=== PATIENT | female | born 1950 | race Caucasian/White ===

== ENCOUNTER 2017-07-15 14:30 | Inpatient (IN) ==
[2017-07-15 16:14] LABS: CKMB % 6.3 %
[2017-07-15 16:25] LABS: Troponin I Only 4.13 NG/ML (0.00-0.045)
[2017-07-15] MEDS ORDERED: ONDANSETRON 4 MG/2 ML VIAL IV PRN (18:08)
[2017-07-15] MEDS ORDERED: PNEUMOCOCCAL VACCINE (13 VALENT) 0.5 ML SYRINGE IM ONE (18:13)
[2017-07-15] MEDS: NITROGLYCERIN 2% OINT 1 INCH/GM PACK TOP SCH (18:54)
[2017-07-15] MEDS ORDERED: ACETAMINOPHEN 325 MG TABLET PO PRN (18:55)
[2017-07-15 19:20] LABS: Risk Ratio 3.63; VLDL CHOLESTEROL 21.6 MG/DL
[2017-07-15] MEDS: CARBIDOPA/LEVODOPA CR 25-100 MG TABLET PO SCH (21:11)
[2017-07-15] MEDS: CARVEDILOL 25 MG TABLET PO SCH (21:11)
[2017-07-15] MEDS: GABAPENTIN 100 MG CAPSULE PO SCH (21:11)
[2017-07-16] MEDS: NITROGLYCERIN 2% OINT 1 INCH/GM PACK TOP SCH ×4 (01:36→17:52)
[2017-07-16 05:11] LABS: Basophils % 0.6 % (0.0-0.8); Eosinophils # 0.1 10*3/uL (0.0-0.87); Eosinophils % 1.8 % (0.00-10.9); Hematocrit 33.7 VOL% (35.7-47.0); Hemoglobin 11.6 GM/DL (12.0-16.0); Immature Granulocytes % 0.2 %; Immature Granulocytes Absolute 0.01 #; Lymphocytes % 45.4 % (21.3-54.2); Mean Corpuscular HGB Conc 34.4 GM/DL (32-36); Mean Corpuscular Hemoglobin 32 PG (27-34); Mean Corpuscular Volume 92.3 FL (87-102); Monocytes # 0.5 10*3/uL (0.11-0.8); Monocytes % 8.1 % (1.7-12.7); Neutrophils # 2.9 10*3/uL (1.4-7.4); Neutrophils % 43.9 % (38.7-73.9); Platelet Count 186 T/CUMM (130-400); Red Blood Count 3.65 MC/CUMM (3.8-5.5); Red Cell Distribution Width 15.2 % (9.3-17.3); White Blood Count 6.6 T/CUMM (4-12)
[2017-07-16 05:37] LABS: Alanine Aminotransferase < 6 U/L (13-56); Albumin 3.4 G/DL (3.4-5.0); Alkaline Phosphatase 98 U/L (45-117); Aspartate Amino Transferase 23 U/L (0-37); Blood Urea Nitrogen 17 MG/DL (7-18); Calcium 8.7 MG/DL (8.5-10.1); Glucose 90 MG/DL (74-106); Osmolality,Calculated 282.3 MOS/KG (273-304); Potassium 4.2 MMOL/L (3.5-5.1); Sodium 141 MMOL/L (136-145); Total Protein 6.2 G/DL (6.4-8.3)
[2017-07-16] MEDS: CARBIDOPA/LEVODOPA CR 25-100 MG TABLET PO SCH ×2 (08:42→21:23)
[2017-07-16] MEDS: PANTOPRAZOLE 40 MG TABLET PO SCH (08:42)
[2017-07-16] MEDS: ASPIRIN 325 MG TABLET PO SCH (08:42)
[2017-07-16] MEDS: CARVEDILOL 25 MG TABLET PO SCH ×2 (08:42→16:30)
[2017-07-16] MEDS: CITALOPRAM 20 MG TABLET PO SCH (08:42)
[2017-07-16] MEDS: GABAPENTIN 100 MG CAPSULE PO SCH ×3 (08:42→21:23)
[2017-07-16] MEDS ORDERED: POTASSIUM CHLORIDE RIDER 10 MEQ in PREMIX 1 EACH IV PRN (12:05)
[2017-07-16] MEDS ORDERED: DIAZEPAM 5 MG TABLET PO ONE (12:05)
[2017-07-16] MEDS ORDERED: diphenhydrAMINE CAP 25 MG CAPSULE PO ONE (12:05)
[2017-07-16] MEDS ORDERED: MAGNESIUM SULF RIDER 2 GM in PREMIX 1 EACH IV PRN (12:05)
[2017-07-16] MEDS: TICAGRELOR 90 MG TABLET PO SCH ×2 (12:29→21:24)
[2017-07-16] MEDS: ROSUVASTATIN 20 MG TABLET PO SCH (21:23)
[2017-07-17] MEDS: NITROGLYCERIN 2% OINT 1 INCH/GM PACK TOP SCH ×4 (03:28→17:08)
[2017-07-17] MEDS: CITALOPRAM 20 MG TABLET PO SCH (08:41)
[2017-07-17] MEDS: PANTOPRAZOLE 40 MG TABLET PO SCH (08:42)
[2017-07-17] MEDS: ASPIRIN 325 MG TABLET PO SCH (08:42)
[2017-07-17] MEDS: TICAGRELOR 90 MG TABLET PO SCH ×2 (08:42→21:37)
[2017-07-17] MEDS: CARVEDILOL 25 MG TABLET PO SCH ×2 (08:42→16:10)
[2017-07-17] MEDS: GABAPENTIN 100 MG CAPSULE PO SCH ×3 (08:42→21:37)
[2017-07-17] MEDS: CARBIDOPA/LEVODOPA CR 25-100 MG TABLET PO SCH ×2 (08:44→21:37)
[2017-07-17 10:32] LABS: Apearance,Urine Slightly Hazy (Clear); Bacteria,Urine Occasional /HPF (Few); Bilirubin,Urine Negative (Negative); Blood, Urine Negative (Negative); Glucose,Urine (UA) Negative (Negative); Hyaline Casts,Urine 4 /LPF (0-3); Ketones,Urine Negative (Negative); Mucus,Urine Occasional /LPF (Occasional); Nitrite,Urine Negative (Negative); Protein,Urine Negative; RBC,Urine 1 /HPF (0-4); Squamous Epithelial Cell,Urine Occasional /HPF (0-10); Urine Color Yellow (Yellow); Urine Specific Gravity 1.016 (1.001-1.035); Urine Urobilinogen < 2.0 EU/DL (0.2-1.0); WBC,Urine 2 /HPF (0-6)
[2017-07-17] MEDS ORDERED: MAGNESIUM SULF RIDER 2 GM in PREMIX 1 EACH IV PRN (19:02)
[2017-07-17] MEDS ORDERED: ENOXAPARIN 80 MG/0.8 ML SYRINGE SUBCUT SCH (19:30)
[2017-07-17] MEDS: ROSUVASTATIN 20 MG TABLET PO SCH (21:37)
[2017-07-18] MEDS: SODIUM CHLORIDE 0.9% 1,000 ML IV SCH ×6 (00:11→17:08)
[2017-07-18] MEDS: NITROGLYCERIN 2% OINT 1 INCH/GM PACK TOP SCH ×4 (00:23→17:12)
[2017-07-18] MEDS ORDERED: OXYMETAZOLINE 0.05% NASAL SPRAY 15 ML BOTTLE BOTH NARES PRN (04:26)
[2017-07-18 05:26] LABS: Basophils # 0.1 10*3/uL (0.0-0.2); Basophils % 0.8 % (0.0-0.8); Eosinophils # 0.1 10*3/uL (0.0-0.87); Eosinophils % 1.6 % (0.00-10.9); Hematocrit 32.1 VOL% (35.7-47.0); Hemoglobin 10.6 GM/DL (12.0-16.0); Immature Granulocytes % 0.2 %; Immature Granulocytes Absolute 0.02 #; Lymphocytes # 2.8 10*3/uL (1.4-4.0); Lymphocytes % 33.7 % (21.3-54.2); Mean Corpuscular Hemoglobin 31 PG (27-34); Mean Platelet Volume 12.8 FL (9.6-12.0); Monocytes # 0.7 10*3/uL (0.11-0.8); Neutrophils # 4.6 10*3/uL (1.4-7.4); Neutrophils % 55.7 % (38.7-73.9); Platelet Count 187 T/CUMM (130-400); Red Blood Count 3.38 MC/CUMM (3.8-5.5); Red Cell Distribution Width 14.8 % (9.3-17.3); White Blood Count 8.3 T/CUMM (4-12)
[2017-07-18 05:28] LABS: PT Patient Result 10.5 SECS; Partial Thromboplastin Time 31.3 SECS (0-40)
[2017-07-18 05:43] LABS: Calcium 8.2 MG/DL (8.5-10.1); Osmolality,Calculated 288.3 MOS/KG (273-304); Potassium 4.7 MMOL/L (3.5-5.1)
[2017-07-18 05:57] LABS: Calcium 8.4 MG/DL (8.5-10.1); Osmolality,Calculated 289.3 MOS/KG (273-304); Potassium 4.6 MMOL/L (3.5-5.1)
[2017-07-18] MEDS ORDERED: diphenhydrAMINE CAP 25 MG CAPSULE PO ONE ×2 (06:30)
[2017-07-18] MEDS ORDERED: DIAZEPAM 5 MG TABLET PO ONE ×2 (06:30)
[2017-07-18] MEDS ORDERED: SODIUM CHLORIDE 0.9% 500 ML IV ONE ×2 (07:08→07:24)
[2017-07-18 07:40] LABS: Hematocrit 27.4 VOL% (35.7-47.0); Hemoglobin 9.3 GM/DL (12.0-16.0)
[2017-07-18] MEDS ORDERED: SODIUM CHLORIDE 0.9% 1,000 ML IV PRN ×2 (07:57→08:37)
[2017-07-18] MEDS: CITALOPRAM 20 MG TABLET PO SCH (08:19)
[2017-07-18] MEDS: GABAPENTIN 100 MG CAPSULE PO SCH ×3 (08:20→21:38)
[2017-07-18] MEDS: PANTOPRAZOLE 40 MG TABLET PO SCH (08:20)
[2017-07-18] MEDS: CARBIDOPA/LEVODOPA CR 25-100 MG TABLET PO SCH ×2 (08:20→21:38)
[2017-07-18 16:43] LABS: Hematocrit 25.5 VOL% (35.7-47.0); Hemoglobin 8.5 GM/DL (12.0-16.0)
[2017-07-18] MEDS ORDERED: MAGNESIUM SULF RIDER 2 GM in PREMIX 1 EACH IV PRN (18:19)
[2017-07-18] MEDS ORDERED: POTASSIUM CHLORIDE RIDER 10 MEQ in PREMIX 1 EACH IV PRN (18:19)
[2017-07-18] MEDS: ROSUVASTATIN 20 MG TABLET PO SCH (21:38)
[2017-07-19] MEDS: SODIUM CHLORIDE 0.9% 1,000 ML IV SCH ×4 (02:31→22:29)
[2017-07-19] MEDS: NITROGLYCERIN 2% OINT 1 INCH/GM PACK TOP SCH ×6 (02:45→23:58)
[2017-07-19 05:49] LABS: Basophils # 0.1 10*3/uL (0.0-0.2); Basophils % 0.5 % (0.0-0.8); Eosinophils # 0.1 10*3/uL (0.0-0.87); Eosinophils % 1.3 % (0.00-10.9); Hemoglobin 8.1 GM/DL (12.0-16.0); Immature Granulocytes % 0.3 %; Immature Granulocytes Absolute 0.03 #; Lymphocytes # 3.1 10*3/uL (1.4-4.0); Lymphocytes % 33.4 % (21.3-54.2); Mean Corpuscular HGB Conc 33.8 GM/DL (32-36); Mean Corpuscular Hemoglobin 30 PG (27-34); Mean Corpuscular Volume 89.2 FL (87-102); Mean Platelet Volume 12.4 FL (9.6-12.0); Monocytes # 0.6 10*3/uL (0.11-0.8); Monocytes % 6.8 % (1.7-12.7); Neutrophils # 5.4 10*3/uL (1.4-7.4); Neutrophils % 57.7 % (38.7-73.9); Platelet Count 160 T/CUMM (130-400); Red Blood Count 2.69 MC/CUMM (3.8-5.5); Red Cell Distribution Width 19.1 % (9.3-17.3); White Blood Count 9.4 T/CUMM (4-12)
[2017-07-19 06:12] LABS: Osmolality,Calculated 285.1 MOS/KG (273-304)
[2017-07-19 06:13] LABS: Calcium 8.1 MG/DL (8.5-10.1); Osmolality,Calculated 285.1 MOS/KG (273-304); Potassium 4.2 MMOL/L (3.5-5.1)
[2017-07-19] MEDS: PANTOPRAZOLE 40 MG TABLET PO SCH (09:23)
[2017-07-19] MEDS: GABAPENTIN 100 MG CAPSULE PO SCH ×3 (12:29→21:51)
[2017-07-19] MEDS ORDERED: ETOMIDATE 20 MG/10 ML VIAL IV ONE (12:35)
[2017-07-19] MEDS ORDERED: LIDOCAINE 2% 5 ML VIAL ONE (12:35)
[2017-07-19] MEDS ORDERED: LIDOCAINE 1% 20 ML VIAL ONE (14:36)
[2017-07-19] MEDS ORDERED: MIDAZOLAM 2 MG/2 ML VIAL ONE (14:40)
[2017-07-19] MEDS ORDERED: MEPERIDINE 25 MG/1 ML VIAL ONE (14:40)
[2017-07-19] MEDS ORDERED: HEPARIN 5,000 UNIT/1 ML VIAL ONE (14:53)
[2017-07-19] MEDS: CARBIDOPA/LEVODOPA CR 25-100 MG TABLET PO SCH ×2 (17:00→21:51)
[2017-07-19] MEDS: ASPIRIN CHEW 81 MG TABLET PO SCH (17:00)
[2017-07-19] MEDS ORDERED: NITROGLYCERIN SL 0.4 MG TABLET SL PRN (17:01)
[2017-07-19] MEDS: buPROPion 75 MG TABLET PO SCH ×2 (17:06→21:51)
[2017-07-19] MEDS: TICAGRELOR 90 MG TABLET PO SCH ×2 (17:07→21:51)
[2017-07-19] MEDS: CITALOPRAM 20 MG TABLET PO SCH (17:13)
[2017-07-19] MEDS: ZALEPLON 5 MG CAPSULE PO PRN (21:51)
[2017-07-19] MEDS: ROSUVASTATIN 20 MG TABLET PO SCH (21:51)
[2017-07-20 05:24] LABS: Basophils % 0.4 % (0.0-0.8); Eosinophils # 0.1 10*3/uL (0.0-0.87); Eosinophils % 1.7 % (0.00-10.9); Hematocrit 20.2 VOL% (35.7-47.0); Hemoglobin 6.6 GM/DL (12.0-16.0); Immature Granulocytes % 0.4 %; Immature Granulocytes Absolute 0.03 #; Lymphocytes # 2.2 10*3/uL (1.4-4.0); Lymphocytes % 28.3 % (21.3-54.2); Mean Corpuscular HGB Conc 32.7 GM/DL (32-36); Mean Corpuscular Hemoglobin 30 PG (27-34); Mean Corpuscular Volume 91.8 FL (87-102); Monocytes # 0.5 10*3/uL (0.11-0.8); Monocytes % 6.9 % (1.7-12.7); Neutrophils # 4.9 10*3/uL (1.4-7.4); Neutrophils % 62.3 % (38.7-73.9); Platelet Count 145 T/CUMM (130-400); Red Cell Distribution Width 18.7 % (9.3-17.3); White Blood Count 7.8 T/CUMM (4-12)
[2017-07-20 06:23] LABS: Alanine Aminotransferase < 6 U/L (13-56); Albumin 2.7 G/DL (3.4-5.0); Alkaline Phosphatase 66 U/L (45-117); Aspartate Amino Transferase 9 U/L (0-37); Blood Urea Nitrogen 13 MG/DL (7-18); Calcium 7.7 MG/DL (8.5-10.1); Glucose 114 MG/DL (74-106); Potassium 3.5 MMOL/L (3.5-5.1); Sodium 143 MMOL/L (136-145); Total Protein 4.8 G/DL (6.4-8.3)
[2017-07-20] MEDS: SODIUM CHLORIDE 0.9% 1,000 ML IV SCH (06:32)
[2017-07-20] MEDS: NITROGLYCERIN 2% OINT 1 INCH/GM PACK TOP SCH ×3 (06:49→17:19)
[2017-07-20] MEDS: CARVEDILOL 25 MG TABLET PO SCH ×2 (09:40→16:53)
[2017-07-20] MEDS: CARBIDOPA/LEVODOPA CR 25-100 MG TABLET PO SCH ×2 (09:40→22:01)
[2017-07-20] MEDS: DONEPEZIL 10 MG TABLET PO SCH (09:40)
[2017-07-20] MEDS: buPROPion 75 MG TABLET PO SCH ×2 (09:40→22:02)
[2017-07-20] MEDS: GABAPENTIN 100 MG CAPSULE PO SCH ×3 (09:40→22:01)
[2017-07-20] MEDS: TICAGRELOR 90 MG TABLET PO SCH ×2 (09:40→22:02)
[2017-07-20] MEDS: ASPIRIN CHEW 81 MG TABLET PO SCH (09:40)
[2017-07-20] MEDS: PANTOPRAZOLE 40 MG TABLET PO SCH (09:40)
[2017-07-20] MEDS ORDERED: SODIUM CHLORIDE 0.9% 1,000 ML IV PRN (10:34)
[2017-07-20 11:45] LABS: Hematocrit 20.4 VOL% (35.7-47.0); Hemoglobin 6.7 GM/DL (12.0-16.0)
[2017-07-20] MEDS ORDERED: BISACODYL 5 MG TABLET PO PRN (15:20)
[2017-07-20] MEDS ORDERED: guaiFENesin/DM ER 600-30 MG TABLET PO PRN (15:20)
[2017-07-20] MEDS ORDERED: diphenhydrAMINE CAP 25 MG CAPSULE PO PRN (15:20)
[2017-07-20] MEDS ORDERED: ROSUVASTATIN 10 MG TABLET PO SCH (21:00)
[2017-07-20] MEDS: ZALEPLON 5 MG CAPSULE PO PRN (22:01)
[2017-07-21] MEDS: NITROGLYCERIN 2% OINT 1 INCH/GM PACK TOP SCH ×3 (01:06→12:55)
[2017-07-21 05:07] LABS: Basophils % 0.5 % (0.0-0.8); Eosinophils # 0.2 10*3/uL (0.0-0.87); Eosinophils % 2.2 % (0.00-10.9); Hematocrit 27.4 VOL% (35.7-47.0); Hemoglobin 8.9 GM/DL (12.0-16.0); Immature Granulocytes % 0.5 %; Immature Granulocytes Absolute 0.04 #; Lymphocytes # 2.5 10*3/uL (1.4-4.0); Mean Corpuscular HGB Conc 32.5 GM/DL (32-36); Mean Corpuscular Hemoglobin 28 PG (27-34); Mean Corpuscular Volume 87.5 FL (87-102); Mean Platelet Volume 12.6 FL (9.6-12.0); Monocytes # 0.6 10*3/uL (0.11-0.8); Monocytes % 7.6 % (1.7-12.7); Neutrophils # 4.4 10*3/uL (1.4-7.4); Neutrophils % 57.2 % (38.7-73.9); Platelet Count 143 T/CUMM (130-400); Red Blood Count 3.13 MC/CUMM (3.8-5.5); Red Cell Distribution Width 19.3 % (9.3-17.3); White Blood Count 7.8 T/CUMM (4-12)
[2017-07-21 05:30] LABS: Calcium 8.2 MG/DL (8.5-10.1); Potassium 3.3 MMOL/L (3.5-5.1)
[2017-07-21] MEDS ORDERED: POTASSIUM CHLORIDE 20 MEQ PACK PO ONE (08:30)
[2017-07-21] MEDS: ASPIRIN CHEW 81 MG TABLET PO SCH (09:10)
[2017-07-21] MEDS: PANTOPRAZOLE 40 MG TABLET PO SCH (09:10)
[2017-07-21] MEDS: TICAGRELOR 90 MG TABLET PO SCH (09:10)
[2017-07-21] MEDS: CARVEDILOL 25 MG TABLET PO SCH (09:10)
[2017-07-21] MEDS: DONEPEZIL 10 MG TABLET PO SCH (09:10)
[2017-07-21] MEDS: buPROPion 75 MG TABLET PO SCH (09:10)
[2017-07-21] MEDS: GABAPENTIN 100 MG CAPSULE PO SCH (09:10)
[2017-07-21] MEDS: CARBIDOPA/LEVODOPA CR 25-100 MG TABLET PO SCH (09:10)
[2017-07-21 11:28] VITALS: BP 102/57
[2017-07-21] MEDS ORDERED: FERROUS SULFATE 325 MG TABLET PO SCH (21:00)
[2017-07-21] MEDS ORDERED: FERROUS SULFATE ER 140 MG TABLET PO SCH (21:00)
== END 2017-07-21 14:51 | disposition home or self-care (01) | DRG 281 ==
LOC: EDUNIT# → EDBD → N.ED 14:30 → N.EDINP 15:08 → N.TELES 18:17 → N.ICU 07-18 08:04 → N.TELEN 07-19 15:41
PROVIDERS: ADMIT Internal Medicine Cardiovascular Disease; ATTEND Internal Medicine Cardiovascular Disease
PROC: CLCCHCL (ICD-10-PCS; 2017-07-19 13:45)

== ENCOUNTER 2018-01-21 20:47 | Inpatient (IN) ==
[2018-01-21] MEDS: NOREPINEPHRINE 8 MG in SODIUM CHLORIDE 0.9% 242 ML IV PRN (20:42)
[~2018-01-21 20:47] MED LIST: NOREPINEPHRINE 4 MG/4 ML VIAL IV ONE
[2018-01-21] MEDS ORDERED: NOREPINEPHRINE 4 MG/4 ML VIAL IV ONE ×2 (20:53→20:55)
[2018-01-21] MEDS ORDERED: LIDOCAINE 1%/EPI INJ 20 ML VIAL ONE (20:53)
[2018-01-21] MEDS ORDERED: HEPARIN/NACL 0.9% 2 UNITS/ML 1,000 ML IV ONE (20:53)
[2018-01-21] MEDS ORDERED: TIROFIBAN 5,000 MCG/100 ML PREMIX IV ONE (20:57)
[2018-01-21] MEDS ORDERED: DOPamine 800 MG/250 ML PREMIX IV ONE (21:12)
[2018-01-21] MEDS: DOPamine 800 MG/250 ML PREMIX IV PRN (21:17)
[2018-01-21] MEDS ORDERED: ENOXAPARIN 60 MG/0.6 ML SYRINGE ONE (21:18)
[2018-01-21] MEDS ORDERED: ASPIRIN 325 MG TABLET ONE (21:19)
[2018-01-21] MEDS ORDERED: TICAGRELOR 90 MG TABLET ONE (21:34)
[2018-01-21] MEDS ORDERED: TIROFIBAN 5,000 MCG/100 ML PREMIX IV SCH (22:00)
[2018-01-21] MEDS ORDERED: fentaNYL 100 MCG/2 ML VIAL IV PRN (22:10)
[2018-01-21] MEDS ORDERED: SODIUM CHLORIDE 0.45% 1,000 ML IV SCH (22:30)
[2018-01-22] MEDS: NOREPINEPHRINE 8 MG in SODIUM CHLORIDE 0.9% 242 ML IV PRN ×5 (01:47→20:34)
[2018-01-22 02:20] LABS: Basophils % 0.2 % (0.0-0.8); Hematocrit 28.3 VOL% (35.7-47.0); Immature Granulocytes % 1.3 %; Immature Granulocytes Absolute 0.19 #; Lymphocytes # 1.7 10*3/uL (1.4-4.0); Lymphocytes % 11.3 % (21.3-54.2); Mean Corpuscular HGB Conc 31.8 GM/DL (32-36); Mean Corpuscular Hemoglobin 29 PG (27-34); Mean Corpuscular Volume 92.5 FL (87-102); Mean Platelet Volume 10.7 FL (9.6-12.0); Monocytes # 0.8 10*3/uL (0.11-0.8); Monocytes % 5.2 % (1.7-12.7); Neutrophils # 12.2 10*3/uL (1.4-7.4); Platelet Count 301 T/CUMM (130-400); Red Blood Count 3.06 MC/CUMM (3.8-5.5); Red Cell Distribution Width 15.7 % (9.3-17.3); White Blood Count 14.8 T/CUMM (4-12)
[2018-01-22] MEDS ORDERED: NOREPINEPHRINE 4 MG/4 ML VIAL IV ONE (05:26)
[2018-01-22] MEDS ORDERED: FUROSEMIDE 40 MG/4 ML VIAL IV ONE (09:19)
[2018-01-22] MEDS: TICAGRELOR 90 MG TABLET PO SCH ×2 (09:51→22:01)
[2018-01-22] MEDS: ASPIRIN EC 81 MG TABLET PO SCH (09:51)
[2018-01-22 10:24] LABS: Albumin 2.5 G/DL (3.4-5.0); Bilirubin,Total 0.8 MG/DL (0.2-1.0); Calcium 7.5 MG/DL (8.5-10.1); Osmolality,Calculated 285.7 MOS/KG (273-304); Potassium 3.7 MMOL/L (3.5-5.1); Total Protein 6.1 G/DL (6.4-8.3)
[2018-01-22] MEDS: ALBUTEROL/IPRATROPIUM 3 ML NEB RESP TX SCH ×4 (10:59→22:54)
[2018-01-22 11:06] LABS: Apearance,Urine CLOUDY (Clear); Bilirubin,Urine Negative (Negative); Blood, Urine Negative (Negative); Glucose,Urine (UA) Negative (Negative); Ketones,Urine 5 mg/dL (Negative); Mucus,Urine Many /LPF (Occasional); Nitrite,Urine Negative (Negative); Protein,Urine 100 MG/DL; RBC,Urine 5 /HPF (0-4); Squamous Epithelial Cell,Urine Occasional /HPF (0-10); Urine Color Amber (Yellow); Urine Specific Gravity > 1.060 (1.001-1.035); WBC,Urine 5 /HPF (0-6)
[2018-01-22] MEDS ORDERED: SIMVASTATIN 40 MG TABLET PO SCH (21:00)
[2018-01-22] MEDS: ENOXAPARIN 30 MG/0.3 ML SYRINGE SUBCUT SCH (22:01)
[2018-01-23] MEDS: ALBUTEROL/IPRATROPIUM 3 ML NEB RESP TX SCH ×6 (02:35→23:06)
[2018-01-23] MEDS: NOREPINEPHRINE 8 MG in SODIUM CHLORIDE 0.9% 242 ML IV PRN ×2 (03:03→15:30)
[2018-01-23 03:49] LABS: Calcium 7.6 MG/DL (8.5-10.1); Osmolality,Calculated 290.3 MOS/KG (273-304); Potassium 3.4 MMOL/L (3.5-5.1)
[2018-01-23] MEDS: ASPIRIN EC 81 MG TABLET PO SCH (08:06)
[2018-01-23] MEDS: TICAGRELOR 90 MG TABLET PO SCH ×2 (08:06→21:07)
[2018-01-23] MEDS: SODIUM CHLORIDE 0.9% 1,000 ML IV SCH (11:19)
[2018-01-23] MEDS: INSULIN REGULAR 100 UNIT/ML SUBCUT SCH ×2 (11:21→16:18)
[2018-01-23] MEDS: POTASSIUM CHLORIDE 20 MEQ TABLET PO PRN ×3 (11:22→15:53)
[2018-01-23] MEDS ORDERED: MAGNESIUM HYDROXIDE SUSP 30 ML UDCUP PO PRN (17:59)
[2018-01-23] MEDS: ONDANSETRON 4 MG/2 ML VIAL IV PRN (18:04)
[2018-01-23] MEDS: diphenhydrAMINE CAP 25 MG CAPSULE PO PRN (21:07)
[2018-01-23] MEDS: ENOXAPARIN 30 MG/0.3 ML SYRINGE SUBCUT SCH (21:07)
[2018-01-24] MEDS: INSULIN REGULAR 100 UNIT/ML SUBCUT SCH ×5 (00:23→20:27)
[2018-01-24] MEDS: SODIUM CHLORIDE 0.9% 1,000 ML IV SCH ×2 (02:08→13:10)
[2018-01-24] MEDS: ALBUTEROL/IPRATROPIUM 3 ML NEB RESP TX SCH ×6 (02:49→23:22)
[2018-01-24 06:46] LABS: Basophils # 0.1 10*3/uL (0.0-0.2); Basophils % 0.4 % (0.0-0.8); Eosinophils % 0.2 % (0.00-10.9); Hematocrit 28.8 VOL% (35.7-47.0); Hemoglobin 9.2 GM/DL (12.0-16.0); Immature Granulocytes % 1.4 %; Immature Granulocytes Absolute 0.27 #; Lymphocytes # 2.6 10*3/uL (1.4-4.0); Lymphocytes % 13.1 % (21.3-54.2); Mean Corpuscular HGB Conc 31.9 GM/DL (32-36); Mean Corpuscular Hemoglobin 30 PG (27-34); Mean Platelet Volume 10.8 FL (9.6-12.0); Monocytes # 1.5 10*3/uL (0.11-0.8); Monocytes % 7.7 % (1.7-12.7); NRBC # 1.32 10*3/uL; Neutrophils # 15.1 10*3/uL (1.4-7.4); Neutrophils % 77.2 % (38.7-73.9); Platelet Count 286 T/CUMM (130-400); Red Blood Count 3.03 MC/CUMM (3.8-5.5); Red Cell Distribution Width 16.3 % (9.3-17.3); White Blood Count 19.6 T/CUMM (4-12)
[2018-01-24] MEDS: NOREPINEPHRINE 8 MG in SODIUM CHLORIDE 0.9% 242 ML IV PRN (07:00)
[2018-01-24 07:14] LABS: Calcium 7.7 MG/DL (8.5-10.1); Osmolality,Calculated 292.4 MOS/KG (273-304); Potassium 4.7 MMOL/L (3.5-5.1)
[2018-01-24 07:23] LABS: Albumin 2.5 G/DL (3.4-5.0); Bilirubin,Direct 0.8 MG/DL (0.0-0.20); Bilirubin,Indirect 0.8 MG/DL (0.0-1.0); Bilirubin,Total 1.6 MG/DL (0.2-1.0); Total Protein 5.8 G/DL (6.4-8.3)
[2018-01-24] MEDS ORDERED: FUROSEMIDE 40 MG/4 ML VIAL ONE (08:00)
[2018-01-24] MEDS: ASPIRIN EC 81 MG TABLET PO SCH (08:13)
[2018-01-24] MEDS: TICAGRELOR 90 MG TABLET PO SCH ×2 (08:13→20:55)
[2018-01-24] MEDS: FUROSEMIDE 40 MG/4 ML VIAL IV SCH ×2 (08:13→16:05)
[2018-01-24] MEDS: ONDANSETRON 4 MG/2 ML VIAL IV PRN ×2 (10:45→17:06)
[2018-01-24 16:30] LABS: Hepatitis A Ab IgM Quant 0.25 Index; Hepatitis A Ab IgM Result Negative (Negative); Hepatitis B Core IgM Quant < 0.05 Index; Hepatitis B Core IgM Result Negative (Negative); Hepatitis B Surface Ag Quant 0.73 Index; Hepatitis B Surface Ag Result Negative (Negative); Hepatitis C Virus Ab Result Negative (Negative)
[2018-01-24] MEDS: ENOXAPARIN 30 MG/0.3 ML SYRINGE SUBCUT SCH (20:55)
[2018-01-24] MEDS: diphenhydrAMINE CAP 25 MG CAPSULE PO PRN (22:00)
[2018-01-25] MEDS: SODIUM CHLORIDE 0.9% 1,000 ML IV SCH
[2018-01-25] MEDS: FUROSEMIDE 40 MG/4 ML VIAL IV SCH ×3 (00:04→16:44)
[2018-01-25] MEDS: ALBUTEROL/IPRATROPIUM 3 ML NEB RESP TX SCH ×6 (03:22→23:34)
[2018-01-25 03:42] LABS: Basophils # 0.1 10*3/uL (0.0-0.2); Basophils % 0.3 % (0.0-0.8); Eosinophils # 0.1 10*3/uL (0.0-0.87); Eosinophils % 0.6 % (0.00-10.9); Hematocrit 26.2 VOL% (35.7-47.0); Hemoglobin 8.2 GM/DL (12.0-16.0); Immature Granulocytes % 2.8 %; Immature Granulocytes Absolute 0.55 #; Lymphocytes # 2.5 10*3/uL (1.4-4.0); Lymphocytes % 12.6 % (21.3-54.2); Mean Corpuscular HGB Conc 31.3 GM/DL (32-36); Mean Corpuscular Hemoglobin 30 PG (27-34); Mean Platelet Volume 10.9 FL (9.6-12.0); Monocytes # 1.4 10*3/uL (0.11-0.8); Monocytes % 6.9 % (1.7-12.7); NRBC # 1.93 10*3/uL; Neutrophils # 15.1 10*3/uL (1.4-7.4); Neutrophils % 76.8 % (38.7-73.9); Platelet Count 255 T/CUMM (130-400); Red Cell Distribution Width 16.4 % (9.3-17.3); White Blood Count 19.6 T/CUMM (4-12)
[2018-01-25 03:56] LABS: Calcium 7.8 MG/DL (8.5-10.1); Osmolality,Calculated 294.3 MOS/KG (273-304); Potassium 4.1 MMOL/L (3.5-5.1)
[2018-01-25 04:14] LABS: Lymphocytes 13 % (20-55); Nucleated Red Blood Cells 7 (0-5); Segmented Neutrophils 80 % (50-85); Total Cells Counted 100
[2018-01-25 04:15] LABS: Platelet Estimate Normal
[2018-01-25] MEDS: NOREPINEPHRINE 8 MG in SODIUM CHLORIDE 0.9% 242 ML IV PRN (04:15)
[2018-01-25 04:16] LABS: Hypochromasia Slight; Polychromasia Few
[2018-01-25] MEDS: INSULIN REGULAR 100 UNIT/ML SUBCUT SCH ×4 (07:59→22:09)
[2018-01-25] MEDS: TICAGRELOR 90 MG TABLET PO SCH ×2 (09:13→22:09)
[2018-01-25] MEDS: ONDANSETRON 4 MG/2 ML VIAL IV PRN ×2 (09:17→23:27)
[2018-01-25] MEDS: ASPIRIN EC 81 MG TABLET PO SCH (09:19)
[2018-01-25] MEDS: ENOXAPARIN 30 MG/0.3 ML SYRINGE SUBCUT SCH (22:10)
[2018-01-26] MEDS: FUROSEMIDE 40 MG/4 ML VIAL IV SCH ×2 (01:04→08:46)
[2018-01-26] MEDS: diphenhydrAMINE CAP 25 MG CAPSULE PO PRN (03:27)
[2018-01-26] MEDS: ALBUTEROL/IPRATROPIUM 3 ML NEB RESP TX SCH ×5 (03:47→19:04)
[2018-01-26 04:34] LABS: Basophils # 0.1 10*3/uL (0.0-0.2); Basophils % 0.4 % (0.0-0.8); Eosinophils # 0.1 10*3/uL (0.0-0.87); Eosinophils % 0.2 % (0.00-10.9); Hemoglobin 8.6 GM/DL (12.0-16.0); Immature Granulocytes % 3.1 %; Immature Granulocytes Absolute 0.68 #; Lymphocytes # 2.4 10*3/uL (1.4-4.0); Lymphocytes % 11.1 % (21.3-54.2); Mean Corpuscular HGB Conc 31.9 GM/DL (32-36); Mean Corpuscular Hemoglobin 30 PG (27-34); Mean Corpuscular Volume 94.7 FL (87-102); Mean Platelet Volume 10.9 FL (9.6-12.0); Monocytes # 1.3 10*3/uL (0.11-0.8); Monocytes % 5.8 % (1.7-12.7); NRBC # 3.73 10*3/uL; Neutrophils # 17.4 10*3/uL (1.4-7.4); Neutrophils % 79.4 % (38.7-73.9); Platelet Count 253 T/CUMM (130-400); Red Blood Count 2.85 MC/CUMM (3.8-5.5)
[2018-01-26 05:02] LABS: Band Neutrophils 2 % (0-10); Calcium 7.9 MG/DL (8.5-10.1); Hypochromasia 1+; Lymphocytes 11 % (20-55); Macrocytosis Slight; Nucleated Red Blood Cells 21 (0-5); Osmolality,Calculated 296.4 MOS/KG (273-304); Platelet Estimate Adequate; Polychromasia Slight; Potassium 4.3 MMOL/L (3.5-5.1); Segmented Neutrophils 84 % (50-85); Total Cells Counted 100
[2018-01-26] MEDS: TICAGRELOR 90 MG TABLET PO SCH ×2 (08:46→23:30)
[2018-01-26] MEDS: ASPIRIN EC 81 MG TABLET PO SCH (08:46)
[2018-01-26] MEDS: INSULIN REGULAR 100 UNIT/ML SUBCUT SCH ×4 (08:47→22:06)
[2018-01-26] MEDS ORDERED: DEXTROSE 5% NACL 0.45% 1,000 ML IV SCH (10:00)
[2018-01-26] MEDS ORDERED: LEVOFLOXACIN INJ 500 MG in PREMIX 1 EACH IV ONE (10:00)
[2018-01-26 10:49] LABS: Apearance,Urine CLEAR (Clear); Bilirubin,Urine Negative (Negative); Blood, Urine Moderate mg/dL (Negative); Glucose,Urine (UA) Negative (Negative); Hyaline Casts,Urine 20 /LPF (0-3); Ketones,Urine Negative (Negative); Mucus,Urine Occasional /LPF (Occasional); Nitrite,Urine Negative (Negative); Protein,Urine Negative; RBC,Urine 4 /HPF (0-4); Squamous Epithelial Cell,Urine Occasional /HPF (0-10); Urine Color Yellow (Yellow); WBC,Urine 3 /HPF (0-6)
[2018-01-26] MEDS: SODIUM BICARB INJ 100 MEQ in DEXTROSE 5% 900 ML IV SCH (12:00)
[2018-01-26 15:03] LABS: Albumin 2.5 G/DL (3.4-5.0); Bilirubin,Direct 1.24 MG/DL (0.0-0.20); Bilirubin,Indirect 0.9 MG/DL (0.0-1.0); Bilirubin,Total 2.1 MG/DL (0.2-1.0); Total Protein 5.8 G/DL (6.4-8.3)
[2018-01-26] MEDS ORDERED: MORPHINE 4 MG/1 ML VIAL IV PRN (20:09)
[2018-01-26] MEDS ORDERED: LEVALBUTEROL 1.25 MG/3 ML NEB RESP TX PRN (20:09)
[2018-01-26 20:32] LABS: ABG Base Excess -9.2 MMOL/L (-2.5-2.5); ABG HCO3 16.9 MMOL/L (20-26); ABG Oxygen Saturation 94.1 % (95-100); ABG TCO2 12.4 MMOL/L (23-27); Allen Test Positive
[2018-01-26 20:33] LABS: ABG PO2 74.6 MM HG (80-95)
[2018-01-26] MEDS ORDERED: ETOMIDATE 20 MG/10 ML VIAL IV ONE ×2 (20:47→22:00)
[2018-01-26] MEDS ORDERED: VECURONIUM 10 MG VIAL IV ONE ×2 (20:47→21:11)
[2018-01-26] MEDS ORDERED: FUROSEMIDE 20 MG/2 ML VIAL ONE (20:51)
[2018-01-26] MEDS ORDERED: FUROSEMIDE 40 MG/4 ML VIAL IV ONE (22:00)
[2018-01-26] MEDS: NOREPINEPHRINE 8 MG in SODIUM CHLORIDE 0.9% 242 ML IV PRN (22:10)
[2018-01-26 22:50] LABS: Pt O2 Delivery Device Ventilator
[2018-01-26 22:52] LABS: ABG Base Excess -14.7 MMOL/L (-2.5-2.5); ABG HCO3 12.6 MMOL/L (20-26); ABG PCO2 34.6 MM HG (35-48); ABG TCO2 13.6 MMOL/L (23-27)
[2018-01-26 22:53] LABS: ABG PH 7.178 (7.35-7.45)
[2018-01-26] MEDS: ENOXAPARIN 30 MG/0.3 ML SYRINGE SUBCUT SCH (23:32)
[2018-01-27 00:05] LABS: ABG Base Excess -16.9 MMOL/L (-2.5-2.5); ABG HCO3 11.7 MMOL/L (20-26); ABG Oxygen Saturation 99.1 % (95-100); ABG PH 7.237 (7.35-7.45); ABG TCO2 8.8 MMOL/L (23-27)
[2018-01-27] MEDS: PROPOFOL 1,000 MG/100 ML BOTTLE IV SCH ×2 (00:32→13:06)
[2018-01-27] MEDS: ALBUTEROL/IPRATROPIUM 3 ML NEB RESP TX SCH ×7 (00:35→23:50)
[2018-01-27] MEDS: DOPamine 800 MG/250 ML PREMIX IV PRN (03:28)
[2018-01-27 03:34] LABS: ABG Base Excess -19.1 MMOL/L (-2.5-2.5); ABG HCO3 10.1 MMOL/L (20-26); ABG Oxygen Saturation 98.6 % (95-100); ABG PH 7.216 (7.35-7.45); ABG TCO2 7.2 MMOL/L (23-27)
[2018-01-27 03:36] LABS: ABG PCO2 18.6 MM HG (35-48)
[2018-01-27 03:37] LABS: Basophils # 0.1 10*3/uL (0.0-0.2); Basophils % 0.5 % (0.0-0.8); Eosinophils % 0.1 % (0.00-10.9); Hematocrit 28.7 VOL% (35.7-47.0); Hemoglobin 8.8 GM/DL (12.0-16.0); Immature Granulocytes % 5.4 %; Immature Granulocytes Absolute 1.36 #; Lymphocytes # 1.5 10*3/uL (1.4-4.0); Lymphocytes % 5.8 % (21.3-54.2); Mean Corpuscular HGB Conc 30.7 GM/DL (32-36); Mean Corpuscular Hemoglobin 31 PG (27-34); Mean Corpuscular Volume 100.3 FL (87-102); Mean Platelet Volume 11.1 FL (9.6-12.0); NRBC # 6.82 10*3/uL; Neutrophils % 84.2 % (38.7-73.9); Platelet Count 164 T/CUMM (130-400); Red Blood Count 2.86 MC/CUMM (3.8-5.5); Red Cell Distribution Width 17.6 % (9.3-17.3)
[2018-01-27] MEDS ORDERED: SODIUM CHLORIDE 0.9% 250 ML IV ONE (03:50)
[2018-01-27 04:00] LABS: Calcium 7.7 MG/DL (8.5-10.1); Osmolality,Calculated 291.5 MOS/KG (273-304); Potassium 5.7 MMOL/L (3.5-5.1)
[2018-01-27] MEDS ORDERED: ALBUMIN 25% 12.5 GM in PREMIX 1 EACH IV ONE (04:00)
[2018-01-27] MEDS ORDERED: FUROSEMIDE 40 MG/4 ML VIAL IV ONE (04:00)
[2018-01-27 04:10] LABS: Band Neutrophils 7 % (0-10); Lymphocytes 9 % (20-55); Nucleated Red Blood Cells 23 (0-5); Segmented Neutrophils 75 % (50-85); Total Cells Counted 100
[2018-01-27 04:11] LABS: Atypical Lymphocytes Few; Burr Cells 1+; Platelet Estimate Normal
[2018-01-27 04:21] LABS: Albumin 2.4 G/DL (3.4-5.0); Bilirubin,Total 3.9 MG/DL (0.2-1.0); Calcium 7.6 MG/DL (8.5-10.1); Osmolality,Calculated 292.5 MOS/KG (273-304); Potassium 5.8 MMOL/L (3.5-5.1); Total Protein 5.3 G/DL (6.4-8.3)
[2018-01-27] MEDS ORDERED: DEXTROSE 50% 25 GM/50 ML VIAL IV ONE (04:22)
[2018-01-27] MEDS ORDERED: ALBUMIN 25% 25 GM in PREMIX 1 EACH IV ONE (04:30)
[2018-01-27] MEDS: NOREPINEPHRINE 8 MG in SODIUM CHLORIDE 0.9% 242 ML IV PRN ×3 (04:46→18:33)
[2018-01-27 05:37] LABS: ABG PCO2 19.4 MM HG (35-48)
[2018-01-27] MEDS: INSULIN REGULAR 100 UNIT/ML SUBCUT SCH ×3 (08:00→17:09)
[2018-01-27] MEDS: SODIUM BICARB INJ 100 MEQ in DEXTROSE 5% 900 ML IV SCH ×2 (08:00→11:45)
[2018-01-27] MEDS: DEXTROSE 50% 25 GM/50 ML VIAL IV PRN ×3 (08:20→16:20)
[2018-01-27] MEDS ORDERED: SODIUM POLYSTYRENE SULFATE 15 GM/60 ML BOTTLE RECTAL ONE (08:42)
[2018-01-27] MEDS ORDERED: GLUCAGON 1 MG VIAL IM PRN (08:52)
[2018-01-27] MEDS: TICAGRELOR 90 MG TABLET PO SCH ×2 (09:16→21:48)
[2018-01-27] MEDS: ASPIRIN EC 81 MG TABLET PO SCH (09:16)
[2018-01-27] MEDS ORDERED: LEVOFLOXACIN INJ 250 MG in PREMIX 1 EACH IV SCH (10:00)
[2018-01-27] MEDS: HYDROCORTISONE 100 MG VIAL IV SCH ×2 (10:14→18:19)
[2018-01-27 11:10] LABS: Free T4 (Free Thyroxine) 0.91 NG/DL (0.76-1.46); Thyroid Stimulating Hormone 2.8 uIU/ml (0.358-3.74)
[2018-01-27] MEDS ORDERED: SODIUM POLYSTYRENE SULFATE 15 GM/60 ML BOTTLE NG PRN (14:07)
[2018-01-27] MEDS ORDERED: SODIUM BICARB INJ 150 MEQ in DEXTROSE 5% 850 ML IV SCH (15:00)
[2018-01-27] MEDS: ENOXAPARIN 30 MG/0.3 ML SYRINGE SUBCUT SCH (21:47)
[2018-01-27] MEDS: NOREPINEPHRINE 16 MG in SODIUM CHLORIDE 0.9% 234 ML IV PRN (22:38)
[2018-01-28] MEDS: PROPOFOL 1,000 MG/100 ML BOTTLE IV SCH (00:46)
[2018-01-28] MEDS: DEXTROSE 50% 25 GM/50 ML VIAL IV PRN ×2 (00:50→03:59)
[2018-01-28] MEDS: INSULIN REGULAR 100 UNIT/ML SUBCUT SCH (00:50)
[2018-01-28] MEDS ORDERED: INSULIN REGULAR 100 UNIT/ML SUBCUT SCH (02:00)
[2018-01-28] MEDS: HYDROCORTISONE 100 MG VIAL IV SCH (02:32)
[2018-01-28] MEDS: ALBUTEROL/IPRATROPIUM 3 ML NEB RESP TX SCH (02:40)
[2018-01-28 03:43] VITALS: BP 104/51
[2018-01-28] MEDS ORDERED: DEXTROSE 10% 1,000 ML IV SCH (04:30)
[2018-01-28 04:31] LABS: ABG Base Excess -21.8 MMOL/L (-2.5-2.5); ABG HCO3 8.3 MMOL/L (20-26); ABG Oxygen Saturation 99.1 % (95-100); ABG TCO2 6.4 MMOL/L (23-27)
[2018-01-28 04:33] LABS: ABG PCO2 20.6 MM HG (35-48); ABG PH 7.106 (7.35-7.45)
[2018-01-28] MEDS: NOREPINEPHRINE 16 MG in SODIUM CHLORIDE 0.9% 234 ML IV PRN (04:55)
[2018-01-28 05:03] LABS: Basophils # 0.1 10*3/uL (0.0-0.2); Basophils % 0.6 % (0.0-0.8); Hemoglobin 7.2 GM/DL (12.0-16.0); Immature Granulocytes % 3.4 %; Immature Granulocytes Absolute 0.67 #; Lymphocytes # 0.7 10*3/uL (1.4-4.0); Lymphocytes % 3.4 % (21.3-54.2); Mean Corpuscular HGB Conc 28.8 GM/DL (32-36); Mean Corpuscular Hemoglobin 31 PG (27-34); Mean Corpuscular Volume 108.7 FL (87-102); Mean Platelet Volume 11.6 FL (9.6-12.0); Monocytes # 0.3 10*3/uL (0.11-0.8); Monocytes % 1.4 % (1.7-12.7); NRBC # 8.62 10*3/uL; Neutrophils % 91.2 % (38.7-73.9); Platelet Count 83 T/CUMM (130-400); Red Cell Distribution Width 18.5 % (9.3-17.3); White Blood Count 19.7 T/CUMM (4-12)
[2018-01-28 05:04] LABS: Calcium 6.8 MG/DL (8.5-10.1); Osmolality,Calculated 295.1 MOS/KG (273-304)
[2018-01-28 05:11] LABS: Potassium 7.2 MMOL/L (3.5-5.1)
[2018-01-28 05:12] LABS: Prealbumin 5.2 MG/DL (20-40)
[2018-01-28] MEDS ORDERED: PHENYLEPHRINE DRIP 40 MG/250 ML PREMIX IV PRN (05:13)
[2018-01-28] MEDS ORDERED: PHENYLEPHRINE DRIP 40 MG/250 ML PREMIX IV ONE (05:13)
[2018-01-28 07:27] LABS: Band Neutrophils 23 % (0-10); Lymphocytes 10 % (20-55); Nucleated Red Blood Cells 39 (0-5); Segmented Neutrophils 64 % (50-85); Total Cells Counted 100
[2018-01-28 07:28] LABS: Anisocytosis 1+; Macrocytosis 2+; Platelet Estimate Decreased; Smudge Cells Few
== END 2018-01-28 05:27 | disposition expired | DRG 250 ==
LOC: N.CL 20:47 → N.CC 22:10
PROVIDERS: ADMIT Internal Medicine Interventional Cardiology; ATTEND Internal Medicine Interventional Cardiology
PROC: CLCCHCL (ICD-10-PCS; 2018-01-21 20:45)